=== PATIENT | female | born 1980 | race Caucasian/White ===

== ENCOUNTER → 2017-09-26 | Outpatient (CLI) | payer BC ==
[2017-09-26 11:31] LABS: BASOPHILS # (AUTO) 0.1 10^3/uL (0.0-0.1); BASOPHILS % (AUTO) 1 % (0-10); EOSINOPHILS # (AUTO) 0.3 10^3/uL (0.0-0.3); EOSINOPHILS % (AUTO) 4 % (0-10); HEMATOCRIT 40 % (35-52); HEMOGLOBIN 14.5 G/DL (11.5-16.0); LYMPHOCYTES # (AUTO) 1.9 X 10^3 (1.0-4.0); LYMPHOCYTES % (AUTO) 24 % (12-44); MEAN CORPUSCULAR HEMOGLOBIN 31 PG (25-34); MEAN CORPUSCULAR HGB CONC 36 G/DL (32-36); MEAN CORPUSCULAR VOLUME 85 FL (80-99); MEAN PLATELET VOLUME 10.7 FL (7.4-10.4); MONOCYTES # (AUTO) 0.5 X 10^3 (0.0-1.0); MONOCYTES % (AUTO) 6 % (0-12); NEUTROPHILS # (AUTO) 5.2 X 10^3 (1.8-7.8); NEUTROPHILS % (AUTO) 66 % (42-75); PLATELET COUNT 298 10^3/uL (130-400); RED BLOOD COUNT 4.75 10^6/uL (4.35-5.85); RED CELL DISTRIBUTION WIDTH 13.4 % (10.0-14.5); WHITE BLOOD COUNT 7.9 10^3/uL (4.3-11.0)
[2017-09-27 07:11] LABS: RAGWEED RAST <0.35 kU/L (<0.35)
[2017-09-27 07:12] LABS: ALTERNARIA MOLD RAST <0.35 kU/L (<0.35)
== END ==
LOC: LAB 11:06
PROVIDERS: ATTEND Nurse Practitioner Family
DX: J45.909 Unspecified asthma, uncomplicated (principal)
CPT/HCPCS: 36415; 82785; 85025; 86003

== ENCOUNTER 2017-11-03 15:29 | Outpatient (CLI) | payer BC | END 2017-11-03 15:52 | disposition home or self-care (01) | LOC: SLEEP 15:29 | PROVIDERS: ATTEND Nurse Practitioner Family | DX: G47.33 Obstructive sleep apnea (adult) (pediatric) (principal) ==

== ENCOUNTER → 2019-09-11 | Outpatient (CLI) | payer BC ==
--- NOTE | 2019-09-11 09:50 | Diagnostic Imaging Report ---
INDICATION: Cough and congestion. TIME OF EXAMINATION: 9:37 AM. COMPARISON: No prior studies are available for comparison. FINDINGS: The heart size is normal. The lungs are clear of acute infiltrates. There is minimal linear scarring in the left base. The pulmonary vascularity is normal. No effusion or pneumothorax is detected. IMPRESSION: No acute cardiopulmonary process is detected. Dictated by: Dictated on workstation # [id number]
== END ==
LOC: RAD 09:18
PROVIDERS: ATTEND Nurse Practitioner Family
DX: R05 Cough (principal); R09.81 Nasal congestion; R06.00 Dyspnea, unspecified
CPT/HCPCS: 71046

== ENCOUNTER → 2019-09-11 | Outpatient (CLI) | payer BC ==
[~2019-09-11] MED LIST: HOLD METFORMIN - RECEIVED CONTRAST 20 ML VIAL IV SCH; IOHEXOL 350 MG/ML 100 ML (OMNIPAQUE 350) VIAL IV ONE; NS 100 ML (IVPB) BAG IV ONE
--- NOTE | 2019-09-11 11:55 | Diagnostic Imaging Report ---
PROCEDURE: CT angiography of the chest with contrast. TECHNIQUE: Multiple contiguous axial images were obtained through the chest after uneventful bolus administration of intravenous contrast. 3D reconstructed CTA MIP acquisitions were also performed. Auto Exposure Controls were utilized during the CT exam to meet ALARA standards for radiation dose reduction. INDICATION: Dyspnea. COMPARISON: No prior CT chest studies are available for comparison. FINDINGS: There is suboptimal opacification of the pulmonary arterial system. Central pulmonary arteries are patent. No filling defects are seen. The thoracic aorta is normal in caliber. There is no dissection. No pericardial or pleural fluid is identified. No axillary lymphadenopathy is seen. No mediastinal or hilar lymphadenopathy is detected. The central airways are patent. Minimal scarring or subsegmental atelectasis in the lingula is identified. Otherwise, the lungs are clear. No infiltrate, nodule, or mass is identified. The upper abdomen is unremarkable. IMPRESSION: No central pulmonary emboli or evidence of aortic dissection. No acute feature in the chest is identified. Dictated by: Dictated on workstation # [id number]
--- NOTE | 2019-09-11 12:36 | Diagnostic Imaging Report ---
PROCEDURE: US Venous Lower Ext Claude. TECHNIQUE: Multiple real-time grayscale images were obtained over the lower extremities in various projections, bilaterally. Additional duplex Doppler and color Doppler images were also obtained. INDICATION: Bilateral leg swelling. FINDINGS: There is no evidence of right or left lower extremity DVT. Both lower extremity deep venous systems show normal compressibility with normal response to augmentation and Valsalva. No fluid collection or mass is seen. IMPRESSION: No evidence of right or left lower extremity DVT. Dictated by: Dictated on workstation # [id number]
== END ==
LOC: RAD 11:21
PROVIDERS: ATTEND Nurse Practitioner Family
DX: M79.89 Other specified soft tissue disorders (principal); G47.33 Obstructive sleep apnea (adult) (pediatric); J30.2 Other seasonal allergic rhinitis; J45.909 Unspecified asthma, uncomplicated; E66.01 Morbid (severe) obesity due to excess calories; R91.8 Other nonspecific abnormal finding of lung field
CPT/HCPCS: 71275; 93970

== ENCOUNTER → 2020-09-25 | Outpatient (CLI) | payer BC ==
[~2020-09-25] MED LIST changes: -HOLD METFORMIN - RECEIVED CONTRAST 20 ML VIAL IV SCH; -IOHEXOL 350 MG/ML 100 ML (OMNIPAQUE 350) VIAL IV ONE; -NS 100 ML (IVPB) BAG IV ONE; +RT-ALBUTEROL SULF 2.5 MG/3 ML PRE-MIX VIAL INH ONE
== END ==
LOC: RT 08:00
PROVIDERS: ATTEND Nurse Practitioner Family
DX: J45.909 Unspecified asthma, uncomplicated (principal); G47.33 Obstructive sleep apnea (adult) (pediatric)
CPT/HCPCS: 94060; 94726; 94729

== ENCOUNTER → 2022-06-28 | Outpatient (CLI) | payer BC ==
[~2022-06-28] MED LIST changes: +CATHETER FLUSH 10 ML SYR IV PRN; +IOHEXOL 350 MG/ML 100 ML (OMNIPAQUE 350) VIAL IV ONE; +NS 100 ML (IVPB) BAG IV ONE; -RT-ALBUTEROL SULF 2.5 MG/3 ML PRE-MIX VIAL INH ONE
--- NOTE | 2022-06-28 10:15 | Diagnostic Imaging Report ---
PROCEDURE: CT pelvis with contrast. TECHNIQUE: Oral and intravenous contrast were administered with pelvic CT performed. Auto Exposure Controls were utilized during the CT exam to meet ALARA standards for radiation dose reduction. INDICATION: Anal abscess. COMPARISON: None. FINDINGS: A fluid collection with thick rind and surrounding inflammation is seen in the right perianal region measuring 5.7 x 2.8 cm and 4.7 cm craniocaudal. There is contiguous soft tissue fullness to the anal region without evidence of direct extension into the pelvic cavity. The included loops of bowel are nondistended. No free fluid is seen in the pelvis. The uterus is visualized with an IUD in place. A uterine fibroid is noted in the fundus of the uterus measuring 1.6 cm. Dominant follicle/cysts are seen in the ovaries bilaterally. No acute osseous abnormalities are seen in the pelvis. IMPRESSION: 1. Findings suspicious for abscess in the right perianal region. This demonstrates contiguous soft tissue fullness to the anal region without evidence of abscess in the pelvis. No free fluid is seen in the pelvis. No evidence of bowel obstruction. 2. Small fibroid in the fundus of the uterus. 3. Bilateral dominant follicles/cysts. Dictated by: Dictated on workstation # [id number]
== END ==
LOC: RAD 09:00
PROVIDERS: ATTEND Surgery
DX: D25.9 Leiomyoma of uterus, unspecified (principal); K61.0 Anal abscess
CPT/HCPCS: 72193

== ENCOUNTER 2022-07-14 05:31 | Outpatient (CLI) | payer BC ==
[~2022-07-14] VITALS: Ht 162.5 cm; Wt 88.6 kg
[2022-07-15] MEDS ORDERED: CALC200T50 PO (14:31)
[2022-07-15] MEDS ORDERED: BUDE10.2 IH (14:31)
[2022-07-15] MEDS ORDERED: SERT-414 PO (14:31)
[2022-07-15] MEDS ORDERED: MULT1CAP54 PO (14:31)
[2022-07-15] MEDS ORDERED: FLUT9.9S NS (14:31)
[2022-07-15] MEDS ORDERED: CETI10CA PO (14:31)
[2022-07-15] MEDS ORDERED: MONT-40 PO (14:31)
== END 2022-07-15 14:40 | disposition home or self-care (01) ==
LOC: PREOP 05:31
PROVIDERS: ATTEND Surgery
DX: Z01.818 Encounter for other preprocedural examination (principal)

== ENCOUNTER 2022-07-21 06:20 | Day surgery (SDC) | payer BC ==
[2022-07-21] VITALS (10 sets, daily range): BP systolic 111–147; BP diastolic 68–93
[~2022-07-21] VITALS: Ht 163 cm; Wt 88.6 kg
[~2022-07-21 06:20] MED LIST changes: +BUDE10.2 IH; +CALC200T50 PO; -CATHETER FLUSH 10 ML SYR IV PRN; +CETI10CA PO; +FLUT9.9S NS; -IOHEXOL 350 MG/ML 100 ML (OMNIPAQUE 350) VIAL IV ONE; +MONT-40 PO; +MULT1CAP54 PO; -NS 100 ML (IVPB) BAG IV ONE; +SERT-414 PO
[2022-07-21] MEDS ORDERED: ceFAZolin INJECTION 2,000 MG in NS (IVPB) 50 ML IV ONE (06:30)
[2022-07-21] MEDS: LACTATED RINGERS 1,000 ML IV PRN ×2 (06:36→08:43)
[2022-07-21] MEDS ORDERED: fentaNYL INJ 100 MCG/2 ML AMP ONE (07:46)
[2022-07-21] MEDS ORDERED: MIDAZOLAM 2 MG/2 ML (VERSED) VIAL ONE (07:46)
[2022-07-21] MEDS ORDERED: LIDOCAINE/EPI 1%-1:100,000 (XYLOCAINE) 10 ML ONE (07:51)
--- NOTE | 2022-07-21 08:06 | Progress Note-Pre Operative ---
Pre-Operative Progress Note Date of Available H&P: Jun 29, 2022 Date H&P Reviewed: Jul 21, 2022 Time H&P Reviewed: 07:50 History & Physical: H&P Reviewed, Patient Examed, No changes noted Pre-Operative Diagnosis: perianal abscess MERT DUDLEY DO Jul 21, 2022 08:06
[2022-07-21] MEDS ORDERED: LIDOCAINE/EPI 1%-1:100,000 (XYLOCAINE) 10 ML INJ ONE (08:53)
[2022-07-21] MEDS ORDERED: LIDOCAINE PF 2% 5 ML (XYLOCAINE) VIAL ONE (09:16)
[2022-07-21] MEDS ORDERED: ONDANSETRON 4 MG/2 ML (SDV) Z0FRAN ONE (09:16)
[2022-07-21] MEDS ORDERED: proPOfol 200 MG/20 ML (DIPRIVAN) VIAL IV ONE (09:16)
[2022-07-21] MEDS ORDERED: KETOROLAC 30 MG/ML VIAL ONE (09:16)
[2022-07-21] MEDS ORDERED: SEVOFLURANE (ULTANE) 15 ML INHAL SOLN ONE (09:16)
--- NOTE | 2022-07-21 09:22 | Progress Note-Post Operative ---
Post-Operative Progess Note Surgeon (s)/Internal Control Specialist (s) Surgeon MERT DUDLEY DO Internal Control Specialist: na Pre-Operative Diagnosis perianal abscess Post-Operative Diagnosis perianal cyst Procedure & Operative Findings Date of Procedure 07/21/22 Procedure Performed/Findings excision of perianal cyst 6.5x4cm Anesthesia Type general Estimated Blood Loss Estimated blood loss (mL): minimal Specimens/Packing Specimens Removed perianal cyst MERT DUDLEY DO Jul 21, 2022 09:22
[2022-07-21] MEDS ORDERED: ACHD5005 PO (09:23)
[2022-07-21] MEDS ORDERED: DOCU-143 PO (09:23)
--- NOTE | 2022-07-21 09:24 | Discharge Inst-Simple/Standard ---
Discharge Inst-Standard Discharge Medications New, Converted or Re-Newed RX: Transmitted to Pharmacy Patient Instructions/Follow Up Plan of Care/Instructions/FU: 2 weeks Lien Activity as Tolerated: No Discharge Diet: Regular Diet Other Inst to Patient Follow up Appt: Make appointment for 2 week. Instructions: No lifting greater than 10 pounds. No strenuous activity. May shower in 24 hours, no tub bath or soaking. Use incentive spirometer at home as directed. No Smoking Skin/Wound Care: Keep area clean and dry. Symptoms to Report: Appetite Changes, Extremity Discoloration, Numbness/Tingling, Swelling Increased, Bleeding Excessive, Eyesight Changes, Pain Increased, Urine Color Change, Constipation(Persistent), Fever over 101 degree F, Pain/Pressure in chest, Urinating Difficulty, Cough Up/Vomit Blood, Heart Beat Irreg/Pounding, Pain/Pressure in jaw, Vaginal Bleeding Increase, Cramps in feet or legs, Lightheadedness, Pain/Pressure in shoulder, Diarrhea(Persistent), Memory Changes Suddenly, Questions/Concerns, Weight gain consecutive days, Dizziness/Fainting, Nausea/Vomiting, Shortness of Breath, Weight gain over 2 pounds If questions or concerns contact your physician Or seek help at emergency department. MERT DUDLEY DO Jul 21, 2022 09:24
[2022-07-21] MEDS ORDERED: morphine INJ 10 MG/ML 1ML (SYR OR VIAL) ONE (09:46)
[2022-07-21] MEDS ORDERED: morphine INJ 10 MG/ML 1ML (SYR OR VIAL) IVP ONE (10:00)
[2022-07-21] MEDS ORDERED: ONDANSETRON 4 MG/2 ML (SDV) Z0FRAN IVP PRN (10:00)
[2022-07-21] MEDS ORDERED: fentaNYL INJ 100 MCG/2 ML AMP IVP ONE (10:00)
[2022-07-21] MEDS ORDERED: HYDROcodone/APAP 5 MG/325 MG (LORTAB) TAB PO ONE (10:30)
--- NOTE | 2022-07-21 11:14 | Anesthesia-General Post-Op ---
General Patient Condition Mental Status/LOC: Same as Preop Cardiovascular: Satisfactory Nausea/Vomiting: Absent Respiratory: Satisfactory Pain: Controlled Complications: Absent Post Op Complications Complications None Follow Up Care/Instructions Patient Instructions None needed. Anesthesia/Patient Condition Patient Condition Patient is doing well, no complaints, stable vital signs, no apparent adverse anesthesia problems. No complications reported per nursing. SARAH RIDER CRNA Jul 21, 2022 11:14
--- NOTE | 2022-07-22 13:51 | OPERATIVE REPORT ---
DATE OF SERVICE: 07/21/2022 PREOPERATIVE DIAGNOSIS: Perianal abscess. POSTOPERATIVE DIAGNOSIS: Perianal cyst. PROCEDURE: Excision perianal cyst 6.5 x 4 cm. SURGEON: Mert Emmanuel DO ANESTHESIA: General. ESTIMATED BLOOD LOSS: Minimal. COMPLICATIONS: None. INDICATIONS: The patient is a 42-year-old female with what appeared to be a perianal abscess that was chronic. She was discussed risks and benefits of having this excised or drained and she understood and wished to proceed. Consent was signed and on the chart. DESCRIPTION OF PROCEDURE: The patient was taken to the operating suite. She was placed in lithotomy position. Timeout was performed. Elliptical incision was made around the area of scarring where the area had previously drained. Cautery was used to go circumferentially around the area down through the skin, subcutaneous tissues and encompassing around the hard area of chronic changes, which was then able to be completely excised. Overall, dimension 6.5 x 4 cm. No other pathology noted within the area. The wound was irrigated and the subcutaneous tissues were then reapproximated with 3-0 Vicryl and the skin was then closed using Rapide in a running fashion. The area was washed and dried and sterile bandage were applied. The patient tolerated the procedure well. There were no complications. She was taken to recovery room in stable condition. Job ID: [id number] DocumentID: [id number] Dictated Date: 07/22/2022 09:14:36 Computer Processing Scheduler Date: 07/22/2022 13:49:00 Dictated By: MERT EMMANUEL DO
== END 2022-07-21 11:06 | disposition home or self-care (01) ==
LOC: SDC 06:20
PROVIDERS: ATTEND Surgery
DX: K62.89 Other specified diseases of anus and rectum (principal); L72.0 Epidermal cyst; E66.01 Morbid (severe) obesity due to excess calories; K61.0 Anal abscess; G47.33 Obstructive sleep apnea (adult) (pediatric); Z79.899 Other long term (current) drug therapy
CPT/HCPCS: 84703; 87081